=== PATIENT | male | born 1980 | race Native Hawaiian/Other Pacific Islander ===

== ENCOUNTER 2021-12-29 15:45 | Emergency (ER) | payer OTHER ==
[~2021-12-29] VITALS: Ht 182.9 cm; Wt 74.8 kg
[2021-12-29 16:04] VITALS: BP 118/82; TEMP 97.8
[2021-12-29] MEDS ORDERED: TRAM50TA PO (17:40)
== END 2021-12-29 18:35 | disposition home or self-care (01) ==
LOC: ED 15:45
PROC: 2W3DX1Z Immobilization of Left Lower Arm using Splint (ICD-10-PCS; principal; 2021-12-29)
DX: S52.532A Colles' fracture of left radius, initial encounter for closed fracture (principal); W18.39XA Other fall on same level, initial encounter; Y92.89 Other specified places as the place of occurrence of the external cause
CPT/HCPCS: 96372; 99283; J1885